=== PATIENT | male | born 1940 | race Caucasian/White ===

== ENCOUNTER 2021-11-12 11:17 | Inpatient (IN) | payer MEDICARE, BC ==
[~2021-11-12] VITALS: Ht 188 cm; Wt 87.0 kg
[2021-11-12 11:49] LABS: BASOPHILS % (AUTO) 0.3 % (0-1); EOSINOPHILS % (AUTO) 0.1 % (0-6); HEMATOCRIT 48.1 % (42.0-52.0); HEMOGLOBIN 15.9 g/dl (14.0-17.9); LYMPHOCYTES # (AUTO) 0.4 X10'3 (1.1-4.8); LYMPHOCYTES % (AUTO) 4.3 % (21-51); MEAN CORPUSCULAR HEMOGLOBIN 30.7 PG (27.0-31.0); MEAN CORPUSCULAR HGB CONC 33.2 g/dL (33.0-36.5); MEAN CORPUSCULAR VOLUME 92.7 FL (78-98); MEAN PLATELET VOLUME 8.1 FL (7.4-10.4); MONOCYTES # (AUTO) 0.3 X10'3 (0-0.9); MONOCYTES % (AUTO) 2.5 % (2-12); NEUTROPHILS # (AUTO) 9.6 X10'3 (1.8-7.7); NEUTROPHILS % (AUTO) 92.8 % (42-75); PLATELET COUNT 191 X10'3 (140-440); RED BLOOD COUNT 5.19 X10'6 (4.70-6.10); RED CELL DISTRIBUTION WIDTH 13.7 % (11.5-14.5); WHITE BLOOD COUNT 10.3 X10'3 (4.5-11.0)
[2021-11-12] MEDS ORDERED: ipratropium/albuterol 3ml nebule NEB ONE (12:00)
[2021-11-12 12:03] LABS: ALANINE AMINOTRANSFERASE 36 U/L (12-78); ALBUMIN/GLOBULIN RATIO 0.9 (1.1-1.5); ALKALINE PHOSPHATASE 85 IU/L (46-116); ANION GAP 6 (8-16); ASPARTATE AMINO TRANSFERASE 11 U/L (10-37); BILIRUBIN,TOTAL 0.5 MG/DL (0.1-1.0); BLOOD UREA NITROGEN 31 MG/DL (7-18); BUN/CREATININE RATIO 27.4 (5.4-32.0); CHLORIDE 104 MMOL/L (99-107); CREATININE 1.13 MG/DL (0.60-1.10); GLUCOSE 162 MG/DL (70-104); SODIUM 135 MMOL/L (135-145); TOTAL CARBON DIOXIDE 24.7 MMOL/L (24-32); TOTAL PROTEIN 6.3 G/DL (6.4-8.2); eGFR 62 ML/MIN
[2021-11-12] MEDS ORDERED: normal saline 1000ml 1,000 ML IV ONE (12:50)
[2021-11-12] MEDS ORDERED: iohexol 350MG/ML 100ml bottle IV ONE (13:01)
[2021-11-12] MEDS ORDERED: FLUT1DIS INH (15:13)
[2021-11-12] MEDS ORDERED: TIOT18CA3 (15:13)
[2021-11-12] MEDS ORDERED: methylPREDNISolone sod succ 125mg/2ml vial IV ONE (15:35)
[2021-11-12] MEDS ORDERED: magnesium 4gm in 100ml NS 100 ML IV PRN (15:40)
[2021-11-12] MEDS ORDERED: potassium CL 10mEq/100ml bag 100 ML IV PRN (15:40)
[2021-11-12] MEDS ORDERED: normal saline 1000ml 1,000 ML IV SCH (15:40)
[2021-11-12] MEDS ORDERED: magnesium Cl slow-release 64mg tablet PO PRN (15:40)
[2021-11-12] MEDS ORDERED: ondansetron/PF 4mg/2ml inj IV PRN (15:40)
[2021-11-12] MEDS ORDERED: POTASSIUM BICARB 20meq eff tab 20 MEQ TABLET.EFF PO PRN ×2 (15:40)
[2021-11-12] MEDS ORDERED: acetaminophen 325mg tablet PO PRN (15:40)
[2021-11-12] MEDS ORDERED: magnesium 2GM in 50ml NS 50 ML IV PRN (15:40)
[2021-11-12] MEDS: levoFLOXACIN-Levaquin 500mg/D5 100 ML IV SCH (15:53)
[2021-11-12] MEDS ORDERED: BENA10TA75 PO (17:21)
[2021-11-12] MEDS ORDERED: SERT-433 PO (17:21)
[2021-11-12] MEDS ORDERED: DUTA0.5C36 PO (17:21)
[2021-11-12] MEDS ORDERED: FLO0.4C PO (17:21)
[2021-11-12] MEDS ORDERED: PRED20TA PO (17:21)
[2021-11-12] MEDS ORDERED: GUAI120015 PO (17:25)
--- NOTE | 2021-11-12 18:48 | NUR ---
PT ALERT AND ORIENTED, SATURATION 89%N ON 2L NC. TURNED O2 UP TO 4L
[2021-11-12] MEDS: K and/or MAG REPLACEMENT MC SCH (20:00)
[2021-11-12 20:05] VITALS: BP 125/63
[2021-11-12] MEDS: docusate sod 100mg capsule PO SCH (20:23)
[2021-11-12] MEDS: tamsulosin 0.4mg capsule PO SCH (20:24)
[2021-11-12] MEDS: guaiFENesin ER 600mg tablet PO SCH (20:24)
[2021-11-12] MEDS: lisinopril 10 MG tablet PO SCH (20:24)
[2021-11-12] MEDS: heparin, porcine 5000 units/ml vial SQ SCH (20:24)
[2021-11-12] MEDS: sertraline 50mg tablet PO SCH (21:04)
[2021-11-12] MEDS: dutasteride 0.5 MG capsule PO SCH (21:04)
[2021-11-12 22:00] VITALS: BP 117/61
--- NOTE | 2021-11-13 06:34 | NUR ---
Patient in room PCU 3026. I have received report from Hardy MARMOLEJO and had the opportunity to ask questions and assume patient care.
[2021-11-13 06:52] LABS: ALBUMIN 2.6 G/DL (3.4-5.0); ANION GAP 3 (8-16); BLOOD UREA NITROGEN 27 MG/DL (7-18); BUN/CREATININE RATIO 31.8 (5.4-32.0); CALCIUM 7.9 MG/DL (8.5-10.1); CHLORIDE 109 MMOL/L (99-107); CREATININE 0.85 MG/DL (0.60-1.10); GLUCOSE 123 MG/DL (70-104); MAGNESIUM 1.9 MG/DL (1.5-2.4); POTASSIUM 4.4 MMOL/L (3.5-5.1); SODIUM 140 MMOL/L (135-145); TOTAL CARBON DIOXIDE 27.7 MMOL/L (24-32); eGFR 87 ML/MIN
[2021-11-13 06:54] LABS: BASOPHILS % (AUTO) 0.1 % (0-1); EOSINOPHILS % (AUTO) 0 % (0-6); HEMATOCRIT 43.5 % (42.0-52.0); HEMOGLOBIN 14.6 g/dl (14.0-17.9); LYMPHOCYTES # (AUTO) 0.8 X10'3 (1.1-4.8); LYMPHOCYTES % (AUTO) 8.2 % (21-51); MEAN CORPUSCULAR HEMOGLOBIN 31.4 PG (27.0-31.0); MEAN CORPUSCULAR HGB CONC 33.6 g/dL (33.0-36.5); MEAN CORPUSCULAR VOLUME 93.3 FL (78-98); MEAN PLATELET VOLUME 8.1 FL (7.4-10.4); MONOCYTES # (AUTO) 0.6 X10'3 (0-0.9); MONOCYTES % (AUTO) 5.8 % (2-12); NEUTROPHILS # (AUTO) 8.8 X10'3 (1.8-7.7); NEUTROPHILS % (AUTO) 85.9 % (42-75); PLATELET COUNT 164 X10'3 (140-440); RED BLOOD COUNT 4.66 X10'6 (4.70-6.10); RED CELL DISTRIBUTION WIDTH 13.3 % (11.5-14.5); WHITE BLOOD COUNT 10.2 X10'3 (4.5-11.0)
[2021-11-13 07:00] VITALS: BP 136/80
[2021-11-13] MEDS: levoFLOXACIN-Levaquin 500mg/D5 100 ML IV SCH (07:53)
[2021-11-13] MEDS: guaiFENesin ER 600mg tablet PO SCH ×2 (07:54→19:47)
[2021-11-13] MEDS: lisinopril 10 MG tablet PO SCH ×2 (07:54→19:47)
[2021-11-13] MEDS: dutasteride 0.5 MG capsule PO SCH (07:54)
[2021-11-13] MEDS: sertraline 50mg tablet PO SCH (07:54)
[2021-11-13] MEDS: heparin, porcine 5000 units/ml vial SQ SCH ×2 (07:55→19:47)
[2021-11-13] MEDS: docusate sod 100mg capsule PO SCH ×2 (07:56→19:47)
[2021-11-13] MEDS: tamsulosin 0.4mg capsule PO SCH ×2 (07:56→19:47)
[2021-11-13] MEDS: K and/or MAG REPLACEMENT MC SCH ×2 (07:56→19:24)
[2021-11-13 11:00] VITALS: BP 100/54
[2021-11-13] MEDS: predniSONE 20 mg tablet PO SCH (12:02)
[2021-11-13 15:00] VITALS: BP 129/70
[2021-11-13] MEDS ORDERED: FLUT1BLS11 IH (17:11)
[2021-11-13] MEDS ORDERED: TIOT18CA3 IH (17:11)
--- NOTE | 2021-11-13 17:14 | NUR ---
Page Sent promotional table spacer PAGER ID: [phone] MESSAGE: [phone] Geraldine. Pt had bring in Spiriva and Advair inhalers. They are in pharmacy. I added these meds to med rec per pharmacy for you to approve. Christel @[phone]
[2021-11-13 18:00] VITALS: BP 133/71
--- NOTE | 2021-11-13 18:18 | NUR ---
Problems reprioritized. Patient report given, questions answered & plan of care reviewed with Hardy MARMOLEJO. Patient resting in bed in no acute distress.
[2021-11-13 22:00] VITALS: BP 127/67
[2021-11-14 02:00] VITALS: BP 136/61
[2021-11-14 06:00] VITALS: BP 129/74
--- NOTE | 2021-11-14 06:19 | NUR ---
Patient in room PCU 3026. I have received report from JALEEL Dash and had the opportunity to ask questions and assume patient care.
[2021-11-14 06:29] LABS: BASOPHILS % (AUTO) 0.3 % (0-1); EOSINOPHILS % (AUTO) 0.4 % (0-6); HEMATOCRIT 45.9 % (42.0-52.0); HEMOGLOBIN 15.2 g/dl (14.0-17.9); LYMPHOCYTES # (AUTO) 1.6 X10'3 (1.1-4.8); LYMPHOCYTES % (AUTO) 14.6 % (21-51); MEAN CORPUSCULAR HEMOGLOBIN 30.9 PG (27.0-31.0); MEAN CORPUSCULAR HGB CONC 33.1 g/dL (33.0-36.5); MEAN CORPUSCULAR VOLUME 93.3 FL (78-98); MONOCYTES # (AUTO) 0.9 X10'3 (0-0.9); MONOCYTES % (AUTO) 8.1 % (2-12); NEUTROPHILS # (AUTO) 8.5 X10'3 (1.8-7.7); NEUTROPHILS % (AUTO) 76.6 % (42-75); PLATELET COUNT 179 X10'3 (140-440); RED BLOOD COUNT 4.92 X10'6 (4.70-6.10); RED CELL DISTRIBUTION WIDTH 13.8 % (11.5-14.5); WHITE BLOOD COUNT 11.1 X10'3 (4.5-11.0)
[2021-11-14 06:51] LABS: ALBUMIN 2.8 G/DL (3.4-5.0); ANION GAP 9 (8-16); BLOOD UREA NITROGEN 32 MG/DL (7-18); BUN/CREATININE RATIO 28.6 (5.4-32.0); CALCIUM 8.3 MG/DL (8.5-10.1); CHLORIDE 107 MMOL/L (99-107); CREATININE 1.12 MG/DL (0.60-1.10); GLUCOSE 93 MG/DL (70-104); MAGNESIUM 1.9 MG/DL (1.5-2.4); POTASSIUM 4.2 MMOL/L (3.5-5.1); SODIUM 143 MMOL/L (135-145); eGFR 63 ML/MIN
[2021-11-14] MEDS: K and/or MAG REPLACEMENT MC SCH (08:00)
[2021-11-14] MEDS: tamsulosin 0.4mg capsule PO SCH (08:34)
[2021-11-14] MEDS: sertraline 50mg tablet PO SCH (08:34)
[2021-11-14] MEDS: docusate sod 100mg capsule PO SCH (08:35)
[2021-11-14] MEDS: predniSONE 20 mg tablet PO SCH (08:35)
[2021-11-14] MEDS: guaiFENesin ER 600mg tablet PO SCH (08:37)
[2021-11-14] MEDS: lisinopril 10 MG tablet PO SCH (08:37)
[2021-11-14] MEDS: levoFLOXACIN-Levaquin 500mg/D5 100 ML IV SCH (08:44)
[2021-11-14] MEDS: dutasteride 0.5 MG capsule PO SCH (08:47)
[2021-11-14] MEDS: heparin, porcine 5000 units/ml vial SQ SCH (08:47)
[2021-11-14] MEDS ORDERED: TIOT18CA3 PO (10:00)
[2021-11-14] MEDS ORDERED: FLUT1BLS11 PO (10:00)
[2021-11-14] MEDS ORDERED: FLUTICASONE PROPION PO SCH (10:05)
[2021-11-14] MEDS ORDERED: SALMETEROL PO SCH (10:05)
[2021-11-14 11:00] VITALS: BP 129/67
[2021-11-14] MEDS ORDERED: TYPE IN GENERIC & BRAND NAME OF PATIENT MED STRENGTH & FORM PO SCH (11:45)
[2021-11-14] MEDS ORDERED: TIOTROPIUM BROMIDE PO SCH (11:56)
--- NOTE | 2021-11-14 12:33 | NUR ---
PAGER ID: [phone] MESSAGE: [phone] Jason Chandler Pt mentioned if he is ready for discharge today? He would like to go home. Thank you Paged Dr. Israel regarding possible discharge for today
[2021-11-14] MEDS ORDERED: LEVO500T90 PO (12:41)
[2021-11-14] MEDS ORDERED: ALB0.5UD IH (12:41)
[2021-11-14] MEDS ORDERED: PRED10TA23 PO (12:41)
[2021-11-15] MEDS ORDERED: TYPE IN GENERIC & BRAND NAME OF PATIENT MED STRENGTH & FORM PO SCH (10:06)
== END 2021-11-14 16:35 | disposition home or self-care (01) | DRG 192 ==
LOC: ER 11:17 → ED HOLD 15:44 → PCU 3S 19:30
PROVIDERS: ADMIT Internal Medicine; ATTEND Internal Medicine
PROC: B32T1ZZ Computerized Tomography (CT Scan) of Left Pulmonary Artery using Low Osmolar Contrast (ICD-10-PCS; principal; 2021-11-12)
PROC: B3201ZZ Computerized Tomography (CT Scan) of Thoracic Aorta using Low Osmolar Contrast (ICD-10-PCS; 2021-11-12)
PROC: B32S1ZZ Computerized Tomography (CT Scan) of Right Pulmonary Artery using Low Osmolar Contrast (ICD-10-PCS; 2021-11-12)
DX: J44.1 Chronic obstructive pulmonary disease with (acute) exacerbation (principal); F32.A Depression, unspecified; F41.9 Anxiety disorder, unspecified; I10 Essential (primary) hypertension; N40.0 Benign prostatic hyperplasia without lower urinary tract symptoms; Z90.81 Acquired absence of spleen; Z99.81 Dependence on supplemental oxygen; Z79.899 Other long term (current) drug therapy
CPT/HCPCS: 36415; 71045; 71275; 80048; 80053; 83735; 83880; 84484; 85025; 87081; 93005; 94640; 94760; 96361; 97162; 99285; G0378; J1644; J1956; J2930; J7030; J7512; Q9967